=== PATIENT | female | born 1945 | race Caucasian/White ===

== ENCOUNTER 2016-11-20 06:46 | Day surgery (SDC) | payer MEDICARE ==
--- NOTE | ~2016-11-20 | EGD ---
EGD REPORT [facility] [address] [address] NAME: RENEE DOMÍNGUEZ : [birth year] STATUS : [place] [facility]#: [id number] AGE: 70 ADM/REG DATE : 11/20/16 MR#: [id number] REPORT SERV DATE: 11/20/16 DICTATED BY: NIRMALA MOSS DATE: 11/20/16 REPORT STATUS : Draft TRANSCRIBED BY: [employer] DATE: 11/20/16 [facility] Center Patient Name: Renee Domínguez Date of : 1945 Attending MD: NIRMALA MOSS MD Procedure Date No Time: 11/20/2016 Procedure: Colonoscopy Indications: Rectal bleeding, FH of Colon Cancer - 1st degree relative, Constipation Referring MD: Romana Cortes Medicines: as per anesthesia Complications: No immediate complications. Procedure: Pre-Anesthesia Assessment: - ASA Grade Assessment: III - A patient with severe systemic disease. After I obtained informed consent, the scope was passed under direct vision. Throughout the procedure, the patient's blood pressure, pulse, and oxygen saturations were monitored continuously. The PCF [id number] was introduced through the anus and advanced to the hepatic flexure. The colonoscopy was somewhat difficult due to significant looping and a tortuous colon. The patient tolerated the procedure. The quality of the bowel preparation was adequate to identify polyps. Findings: The perianal and digital rectal examinations were normal. A few small and large-mouthed diverticula were found in the sigmoid colon. Internal hemorrhoids were found during endoscopy and were mild. lack of scope to go beyond hf Impression: - Diverticulosis in the sigmoid colon. - Internal hemorrhoids. Recommendation: - Perform an air contrast barium enema. Procedure Code(s): --- Professional --- 80371, 52, Colonoscopy, flexible, proximal to splenic flexure; diagnostic, with or without collection of specimen(s) by brushing or washing, with or without colon decompression (separate procedure) Diagnosis Code(s): --- Professional --- K64.8, Other hemorrhoids EGD REPORT [facility] [address] [place]. [address] NAME: RENEE DOMÍNGUEZ : [birth year] [place]US : [place] [facility] [place]#: [id number] AGE: 70 ADM/REG DATE : 11/20/16 MR#: [id number] REPORT SERV DATE: 11/20/16 DICTATED BY: NIRMALA MOSS DATE: 11/20/16 REPORT STATUS : Draft TRANSCRIBED BY: [employer] DATE: 11/20/16 K57.30, Diverticulosis of large intestine without perforation or abscess without bleeding K62.5, Hemorrhage of anus and rectum Z80.0, Family history of malignant neoplasm of digestive organs K59.00, Constipation, unspecified CPT copyright 2013 [employer]. All rights reserved. The codes documented in this report are preliminary and upon topper packer review may be revised to meet current compliance requirements. NIRMALA MOSS MD 11/20/2016 10:51 AM This report has been signed electronically. Number of Addenda: 0 Note Initiated On: 11/20/2016 10:09 AM Scope Withdrawal Time 0 hours 0 minutes 0 seconds [address] [place] [address]
--- NOTE | ~2016-11-20 | EGD ---
EGD REPORT [facility] [address] [address] NAME: RENEE DOMÍNGUEZ : [birth year] STATUS : REG [facility]#: [id number] AGE: 70 ADM/REG DATE : 11/20/16 MR#: [id number] REPORT SERV DATE: 11/20/16 DICTATED BY: NIRMALA MOSS DATE: 11/20/16 REPORT STATUS : Draft [facility]: [facility] DATE: 11/20/16 [facility] Patient Name: Renee Domínguez Date of : 1945 Attending MD: NIRMALA MOSS MD Procedure Date No Time: 11/20/2016 Procedure: Upper GI endoscopy Indications: Dysphagia, Heartburn, Suspected esophageal reflux Referring MD: Romana Cortes Medicines: as per anesthesia Complications: No immediate complications. Procedure: Pre-Anesthesia Assessment: - ASA Grade Assessment: III - A patient with severe systemic disease. After obtaining informed consent, the endoscope was passed under direct vision. Throughout the procedure, the patient's blood pressure, pulse, and oxygen saturations were monitored continuously. The GIF H190 [id number] was introduced through the mouth, and advanced to the third part of duodenum. The upper GI endoscopy was accomplished without difficulty. The patient tolerated the procedure. Findings: The examined esophagus was normal. The scope was withdrawn. Dilation was performed with a Loya dilator with no resistance at 44 Fr. The entire examined stomach was normal. The cardia and gastric fundus were normal on retroflexion. The examined duodenum was normal. Impression: - Normal esophagus. Dilated. - Normal stomach. - Normal examined duodenum. Recommendation: - Follow an antireflux regimen. - Continue present medications. Procedure Code(s): --- Professional --- 96826, Esophagogastroduodenoscopy, flexible, transoral; diagnostic, including collection of specimen(s) by brushing or washing, when performed (separate procedure) 12378, Dilation of esophagus, by unguided sound or bougie, single or multiple passes Diagnosis Code(s): --- Professional --- EGD REPORT [address] [place]. [address] NAME: RENEE DOMÍNGUEZ : [birth year] STATUS : REG [facility] [place] PAT#: [id number] AGE: 70 ADM/REG DATE : 11/20/16 MR#: [id number] REPORT SERV DATE: 11/20/16 DICTATED BY: NIRMALA MOSS. DATE: 11/20/16 REPORT STATUS : Draft TRANSCRIBED BY: [employer] DATE: 11/20/16 R13.10, Dysphagia, unspecified R12, Heartburn CPT copyright 2013 [employer]. All rights reserved. The codes documented in this report are preliminary and upon certified procedural coder review may be revised to meet current compliance requirements. NIRMALA MOSS MD 11/20/2016 10:10 AM This report has been signed electronically. Number of Addenda: 0 Note Initiated On: 11/20/2016 9:52 AM Scope Withdrawal Time 0 hours 0 minutes [address] [place] [address] [place] [address]
[~2016-11-20 06:46] MED LIST: ACCU20 PO; ALTACE10 MG PO; AMITIZA8 MCG PO; ARICEPT10 PO; BEN25 PO; BUM2 PO; BUM5 PO; BYSTOLIC10 MG PO; C25; CARDCD360 PO; COLCRYS0.6 MG PO; COREG25 PO; CYMBALTA60 PO; DEMA10T PO; DEMA20 PO; DIABETA5 PO; ENDOCET1 TA3 PO; GLUCOPHAGE1000 MG PO; GLUCPH PO; KLONO2 PO; KLONO5 PO; KLOR-CON M2020 MEQ PO; LANTUS SC; LORTAB10 PO; METHOC750B PO; MULTIPLE VIT PO; NEXIUM40 PO; NORV10 PO; NOVOLOG SC; NOVOLOGMIX SC; OXYCONTIN15 MG PO; PCET PO; POTASSIUM 99 MG; PR25 PO; PROTONIX PO; ULTRAM50 PO; VITAMIN D31000 UNIT PO; X5 PO; ZOL50 PO; ZYRTEC ALLGY10 MG PO
== END 2016-11-20 23:59 | disposition home or self-care (01) ==
LOC: DMU 06:46
PROVIDERS: Internal Medicine Gastroenterology
PROC: 0DJD8ZZ Inspection of Lower Intestinal Tract, Via Natural or Artificial Opening Endoscopic (ICD-10-PCS; principal; 2016-11-20 09:00)
PROC: 0D757ZZ Dilation of Esophagus, Via Natural or Artificial Opening (ICD-10-PCS; 2016-11-20 09:00)
DX: K64.8 Other hemorrhoids (principal); K57.30 Diverticulosis of large intestine without perforation or abscess without bleeding; K62.5 Hemorrhage of anus and rectum; Z80.0 Family history of malignant neoplasm of digestive organs; K59.00 Constipation, unspecified; R13.10 Dysphagia, unspecified; R12 Heartburn; F03.90 Unspecified dementia, unspecified severity, without behavioral disturbance, psychotic disturbance, mood disturbance, and anxiety; I10 Essential (primary) hypertension; I49.9 Cardiac arrhythmia, unspecified; F32.9 Major depressive disorder, single episode, unspecified; E66.9 Obesity, unspecified; E11.9 Type 2 diabetes mellitus without complications; K21.9 Gastro-esophageal reflux disease without esophagitis; Z87.442 Personal history of urinary calculi; Z88.5 Allergy status to narcotic agent; Z68.37 Body mass index [BMI] 37.0-37.9, adult; Z85.3 Personal history of malignant neoplasm of breast; Z92.3 Personal history of irradiation; Z96.653 Presence of artificial knee joint, bilateral; Z90.710 Acquired absence of both cervix and uterus; Z90.49 Acquired absence of other specified parts of digestive tract; Z98.41 Cataract extraction status, right eye; Z98.42 Cataract extraction status, left eye; Z96.1 Presence of intraocular lens
CPT/HCPCS: 82962